=== PATIENT | male | born 1945 | race Caucasian/White ===

== ENCOUNTER 2020-08-28 11:56 | Inpatient (IN) | payer MEDICARE ==
[~2020-08-28 11:56] MED LIST: ALDACTONE50 MG PO
[2020-08-28 14:26] LABS: EOSINOPHIL 2.5 % (0-7); HCT 41.8 % (42.0-52.0); HGB 13.2 g/dl (13.2-18.0); LYMPHOCYTE 13.7 % (15-48); MCH 29.5 pg (25.0-31.0); MCHC 31.6 g/dL (32.0-36.0); MCV 93.5 fL (78.0-100.0); MONOCYTE 6.7 % (0-12); MPV 10.9 fL (6.0-9.5); NEUTROPHIL 75.7 % (41-80); NRBC 0; PLT 181 K/uL (150-400); RBC 4.47 M/uL (4.70-6.00); RDW 15.2 % (11.5-14.0); WBC 5.2 K/uL (4.0-10.5)
[2020-08-28 15:13] LABS: INR 3.18 (0.9-1.2); PROTHROMBIN TIME 31.1 SECONDS (11.4-13.6); PTT 48.9 SECONDS (22.2-34.7)
[2020-08-28 15:21] LABS: ALBUMIN 2.3 g/dL (3.4-5.0); BILIRUBIN - TOTAL 1.2 mg/dL (0.2-1.0); BUN/CREAT RATIO (CALC) 22.7 RATIO; CREATININE 0.88 mg/dL (0.67-1.17); GLOBULIN (CALCULATION) 5.6 g/dL; POTASSIUM 3.2 mmol/L (3.5-5.1); TOTAL PROTEIN 7.9 g/dL (6.4-8.2)
[2020-08-28] MEDS ORDERED: XARELTO20 MG PO (18:19)
[2020-08-28] MEDS ORDERED: LASIX40 MG PO (18:19)
[2020-08-28] MEDS ORDERED: UROCIT-K10 MEQ PO (18:20)
[2020-08-28 20:10] LABS: IRON % SATURATION 19.6 %SAT (20-50)
[2020-08-29 07:06] LABS: BASOPHIL 1.1 % (0-2); EOSINOPHIL 2.7 % (0-7); HCT 40.5 % (42.0-52.0); HGB 12.7 g/dl (13.2-18.0); LYMPHOCYTE 13.7 % (15-48); MCH 29.4 pg (25.0-31.0); MCHC 31.4 g/dL (32.0-36.0); MCV 93.8 fL (78.0-100.0); NEUTROPHIL 71.2 % (41-80); NRBC 0; PLT 200 K/uL (150-400); RBC 4.32 M/uL (4.70-6.00); RDW 15.2 % (11.5-14.0); WBC 6.2 K/uL (4.0-10.5)
[2020-08-29 07:23] LABS: BUN/CREAT RATIO (CALC) 27.1 RATIO; CREATININE 0.85 mg/dL (0.67-1.17); PHOSPHORUS 3.5 mg/dL (2.6-4.7); POTASSIUM 3.6 mmol/L (3.5-5.1)
[2020-08-29] MEDS ORDERED: TOPROL XL 50 MG50 MG PO (10:22)
[2020-08-30 05:59] LABS: BASOPHIL 0.7 % (0-2); EOSINOPHIL 1.6 % (0-7); HCT 41.6 % (42.0-52.0); HGB 13.1 g/dl (13.2-18.0); LYMPHOCYTE 12.8 % (15-48); MCHC 31.5 g/dL (32.0-36.0); MCV 92.2 fL (78.0-100.0); MONOCYTE 10.7 % (0-12); MPV 10.6 fL (6.0-9.5); NEUTROPHIL 73.9 % (41-80); NRBC 0; PLT 203 K/uL (150-400); RBC 4.51 M/uL (4.70-6.00); RDW 15.5 % (11.5-14.0); WBC 7.3 K/uL (4.0-10.5)
[2020-08-30 06:29] LABS: BUN/CREAT RATIO (CALC) 31.9 RATIO; CREATININE 0.91 mg/dL (0.67-1.17); MAGNESIUM 1.7 mg/dL (1.8-2.4); POTASSIUM 4.3 mmol/L (3.5-5.1)
--- NOTE | 2020-08-30 15:41 | NUR ---
08/30/20 Pt will be transferred to [facility] nursing.
== END 2020-08-30 21:11 | disposition admitted as inpatient to this hospital (09) | DRG 280 ==
LOC: FER 11:56 → FMS 15:40
PROVIDERS: Emergency Medicine; Nurse Practitioner Family; ADMIT Internal Medicine
PROC: B24BZZZ Ultrasonography of Heart with Aorta (ICD-10-PCS; principal; 2020-08-29)
DX: I11.0 Hypertensive heart disease with heart failure (principal); I50.31 Acute diastolic (congestive) heart failure; I21.A1 Myocardial infarction type 2; I48.20 Chronic atrial fibrillation, unspecified; I35.0 Nonrheumatic aortic (valve) stenosis; G89.4 Chronic pain syndrome; E87.6 Hypokalemia; E11.9 Type 2 diabetes mellitus without complications; I25.10 Atherosclerotic heart disease of native coronary artery without angina pectoris; Z79.01 Long term (current) use of anticoagulants; Z98.890 Other specified postprocedural states; Z87.891 Personal history of nicotine dependence; I34.0 Nonrheumatic mitral (valve) insufficiency; I27.20 Pulmonary hypertension, unspecified; I50.811 Acute right heart failure; M54.9 Dorsalgia, unspecified; D50.9 Iron deficiency anemia, unspecified
CPT/HCPCS: 36415; 71045; 80048; 80053; 80162; 82607; 83540; 83550; 83735; 83880; 84100; 84145; 84484; 85025; 85610; 85730; 93005; 94010; J1160; J1940; J2916; J3475; U0002